=== PATIENT | female | born 2005 | race Caucasian/White ===

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

== ENCOUNTER 2023-12-29 06:24 | Emergency (ER) | payer OTHER, SELFPAY ==
[2023-12-29] MEDS ORDERED: Ondansetron ODT 4 MG TAB ONE (06:38)
[2023-12-29] MEDS ORDERED: Sucralfate 1 GM TAB ONE (07:23)
[2023-12-29] MEDS ORDERED: Promethazine HCl 25 MG/ML VIAL ONE (07:24)
[2023-12-29 07:29] LABS: #Basophils 0.1 thou/uL (0.0-0.2); #Lymphocytes 0.8 thou/uL (1.20-3.40); #Monocytes 0.8 thou/uL (0.11-0.59); #Neutrophils 15.9 thou/uL (1.40-6.50); %Basophils 0.4 % (0.0-1.0); %Eosinophils 0.1 % (0.0-10.0); %Lymphocytes 4.6 % (28.0-48.0); %Monocytes 4.5 % (0.0-4.0); %Neutrophils 90.4 % (31.0-61.0); Hematocrit 41.9 % (36.0-47.0); Hemoglobin 13.8 g/dL (12.0-16.0); Mean Corpuscular HGB CONC 32.9 g/dL (32.0-36.0); Mean Corpuscular Hemoglobin 30.1 pg (25.0-35.0); Mean Corpuscular Volume 91.5 fl (78.0-98.0); Mean Platelet Volume 8.9 fL (7.4-10.4); Platelet Count 322 10x3/uL (130-400); RBC Distribution Width 11.9 % (11.5-14.5); Red Blood Cell (RBC) Count 4.58 mill/uL (4.00-5.20); White Blood Cell (WBC) Count 17.6 10x3/uL (4.8-10.8)
[2023-12-29 07:46] LABS: ALT (SGPT) 10 U/L (8-55); AST (SGOT) 10 U/L (5-34); Albumin 3.1 g/dL (3.5-5.0); Alkaline Phosphatase 109 U/L (40-100); Anion Gap 15 mmol/L (10-20); BUN (Urea Nitrogen) 6 mg/dL (7.0-18.7); Bilirubin, Total 0.4 mg/dL (0.2-1.2); Calc. Creatinine Clearance 0 mL/min (70-130); Calcium 9.5 mg/dL (7.8-10.44); Carbon Dioxide 15 mmol/L (22-29); Chloride 111 mmol/L (98-107); Estimated GFR 125; Globulin 4.1 g/dL (2.4-3.5); Glucose 162 mg/dL (70-105); Magnesium 1.7 mg/dL (1.7-2.2); Potassium 4.1 mmol/L (3.5-5.1); Protein, Total 7.2 g/dL (6.0-8.3); Sodium 137 mmol/L (136-145)
[2023-12-29 07:48] LABS: Lipase 35 U/L (8-78); Phosphorus 2.7 mg/dL (2.3-4.7)
[2023-12-29 09:39] LABS: Bilirubin Small (Negative); Blood, Urine Large (Negative); Clarity Cloudy (Clear); Glucose, Urine (Dipstick) Negative (Negative); Ketone, Urine > or equal to 80 mg/dL (Negative); Leukocyte Negative (Negative); Nitrite Negative (Negative); Protein, Urine (Dipstick) 100 mg/dL (Neg-Trace); RBC/HPF Greater than 50 HPF (0-3); Specific Gravity, Urine 1.025 (1.002-1.036); Urobilinogen 0.2 mg/dL (Less than 2)
[2023-12-29 09:40] LABS: Amphetamine Not Detected (NotDetected); Bacteria/HPF Rare-Few HPF (None Seen); Barbiturates Screen Not Detected (NotDetected); Benzodiazepine Screen Not Detected (NotDetected); CAUTI Indications for Culture Pregnancy; Cocaine Metabolite Screen Not Detected (NotDetected); Methadone Not Detected (NotDetected); Methamphetamine Not Detected (NotDetected); Opiate Screen Not Detected (NotDetected); Oxycodone Screen Not Detected (NotDetected); Phencyclidine (PCP) Not Detected (NotDetected); Squamous Epithelial 0-3 HPF (0-3); THC/Cannabinoid Screen Not Detected (NotDetected); Tricyclic Screen Not Detected (NotDetected); WBC/HPF 0-3 HPF (0-3)
[2023-12-29 09:41] LABS: Urine Culture Reflex No No; Urine Culture Reflex Yes Yes
== END 2023-12-29 11:20 | disposition home or self-care (01) ==
LOC: MADERS 06:24
DX: O21.9 Vomiting of pregnancy, unspecified (principal); O26.891 Other specified pregnancy related conditions, first trimester; E86.0 Dehydration; Z3A.14 14 weeks gestation of pregnancy
CPT/HCPCS: 80053; 80306; 81001; 83690; 83735; 84100; 85025; 87086; 96361; 96374; J2550; Q0162